=== PATIENT | male | born 1955 | race Caucasian/White ===

== ENCOUNTER 2019-04-02 16:43 | Inpatient (IN) | payer BC ==
[~2019-04-02] VITALS: Ht 170.2 cm; Wt 85.4 kg
[2019-04-02] MEDS ORDERED: proCHLORperazine 10 MG/2 ml inj IV ONE (16:55)
[2019-04-02] MEDS ORDERED: iohexol 350MG/ML 100ml bottle IV ONE (16:58)
[2019-04-02 17:10] LABS: BASOPHILS # (AUTO) 0.1 X10'3 (0-0.2); BASOPHILS % (AUTO) 0.4 % (0-1); EOSINOPHILS % (AUTO) 0.1 % (0-6); HEMATOCRIT 38.3 % (42.0-52.0); HEMOGLOBIN 12.8 g/dl (14.0-17.9); LYMPHOCYTES # (AUTO) 2.4 X10'3 (1.1-4.8); LYMPHOCYTES % (AUTO) 15.8 % (21-51); MEAN CORPUSCULAR HGB CONC 33.4 g/dL (33.0-36.5); MEAN CORPUSCULAR VOLUME 86.9 FL (78-98); MEAN PLATELET VOLUME 9.2 FL (7.4-10.4); MONOCYTES # (AUTO) 0.7 X10'3 (0-0.9); MONOCYTES % (AUTO) 4.5 % (2-12); NEUTROPHILS # (AUTO) 12.2 X10'3 (1.8-7.7); NEUTROPHILS % (AUTO) 79.2 % (42-75); PLATELET COUNT 300 X10'3 (140-440); RED BLOOD COUNT 4.41 X10'6 (4.70-6.10); RED CELL DISTRIBUTION WIDTH 14.1 % (11.5-14.5); WHITE BLOOD COUNT 15.4 X10'3 (4.5-11.0)
[2019-04-02 17:21] LABS: ALANINE AMINOTRANSFERASE 41 U/L (12-78); ALBUMIN 3.6 G/DL (3.4-5.0); ALBUMIN/GLOBULIN RATIO 1.1 (1.1-1.5); ALKALINE PHOSPHATASE 75 IU/L (46-116); ANION GAP 10 (8-16); ASPARTATE AMINO TRANSFERASE 22 U/L (10-37); BILIRUBIN,TOTAL 0.3 MG/DL (0.1-1.0); BLOOD UREA NITROGEN 41 MG/DL (7-18); BUN/CREATININE RATIO 41.4 (5.4-32.0); CALCIUM 8.7 MG/DL (8.5-10.1); CHLORIDE 103 MMOL/L (99-107); CREATININE 0.99 MG/DL (0.60-1.10); GLUCOSE 228 MG/DL (70-104); POTASSIUM 4.2 MMOL/L (3.5-5.1); SODIUM 138 MMOL/L (135-145); TOTAL CARBON DIOXIDE 25.4 MMOL/L (24-32); TOTAL PROTEIN 6.8 G/DL (6.4-8.2); eGFR 76 ML/MIN
[2019-04-02 17:29] LABS: LIPASE 101 U/L (73-393); MAGNESIUM 1.8 MG/DL (1.5-2.4)
[2019-04-02] MEDS ORDERED: morphine 4 MG/ML inj SYRINge IV ONE (17:35)
--- NOTE | 2019-04-02 18:02 | NUR ---
PT. W/C TO CT WITH TECH
--- NOTE | 2019-04-02 18:11 | NUR ---
Patient currently in CT and will be assessed upon return.
--- NOTE | 2019-04-02 18:15 | NUR ---
Family updated on POC.
--- NOTE | 2019-04-02 18:18 | NUR ---
Patient complains of indigestion. Spoke to Dr. Wyatt about medication to help and pepcid IV ordered.
[2019-04-02] MEDS ORDERED: famotidine/PF 10 mg/ml inj IV ONE (18:20)
[2019-04-02 19:03] LABS: URINE AMPHETAMINE SCREEN NEGATIVE (Neg); URINE BARBITUATE SCREEN NEGATIVE (Neg); URINE BENZODIAZEPINES SCREEN NEGATIVE (Neg); URINE CANNABINOID SCREEN NEGATIVE (Neg); URINE COCAINE SCREEN NEGATIVE (Neg); URINE METHADONE SCREEN POSITIVE (Neg); URINE OPIATE SCREEN POSITIVE (Neg); URINE PHENCYCLIDINE SCREEN NEGATIVE (Neg)
--- NOTE | 2019-04-02 19:07 | NUR ---
Patient reports vast improvement of pain symptoms with pepcid IV administration.
[2019-04-02] MEDS ORDERED: aminophylline 250mg/10ml inj. IV PRN (19:35)
[2019-04-02] MEDS ORDERED: magnesium Cl slow-release 64mg tablet PO PRN (19:35)
[2019-04-02] MEDS ORDERED: acetaminophen 325mg tablet PO PRN ×2 (19:35)
[2019-04-02] MEDS ORDERED: potassium CL 10mEq/100ml bag 100 ML IV PRN (19:35)
[2019-04-02] MEDS ORDERED: aspirin 325mg tablet PO ONE (19:35)
[2019-04-02] MEDS ORDERED: ondansetron/PF 4mg/2ml inj IV PRN (19:35)
[2019-04-02] MEDS ORDERED: magnesium hydroxide 30ml (MOM) UD suspension PO PRN (19:35)
[2019-04-02] MEDS ORDERED: metoprolol tartrate 1mg/ml inj IV PRN (19:35)
[2019-04-02] MEDS ORDERED: potassium Cl 20 mEq SR tablet PO PRN ×2 (19:35)
[2019-04-02] MEDS ORDERED: magnesium 2GM in 50ml NS 50 ML IV PRN (19:35)
[2019-04-02] MEDS ORDERED: mag hydrox/Alum hydrox/simeth 30ml oral suspension PO PRN (19:35)
[2019-04-02] MEDS ORDERED: regadenoson 0.4mg/5ml syringe IV PRN (19:35)
[2019-04-02] MEDS ORDERED: bisacodyl 10mg suppository rectal RC PRN (19:35)
[2019-04-02] MEDS ORDERED: morphine 2 MG/ML inj. syringe IV PRN ×2 (19:35)
[2019-04-02] MEDS ORDERED: nitroGLYCERIN 0.4mg SUBLingual tab SL PRN ×2 (19:35)
[2019-04-02] MEDS ORDERED: magnesium 4gm in 100ml NS 100 ML IV PRN (19:35)
[2019-04-02] MEDS ORDERED: potassium Cl 40MEQ/NS 500ml 500 ML IV PRN (19:35)
--- NOTE | 2019-04-02 19:52 | NUR ---
ULTRASOUND AT BEDSIDE
[2019-04-02] MEDS: normal saline 1000ml 1,000 ML IV SCH ×2 (20:09→21:46)
[2019-04-02] MEDS: pantoprazole 40mg Tablet.DR PO SCH (20:10)
[2019-04-02 20:30] VITALS: BP 149/80
--- NOTE | 2019-04-02 20:30 | NUR ---
Patient arrived on floor from ED via gurney after receiving report from Sukhi COLON. Patient is alert and oriented able to ambulate to bed independently. Complaining of back pain 3/10 at this time. Placed on vehicle monitor technician, vitals taken, oriented to room. Dr Camilo at bedside to evaluate patient. Patient has no belongings with him at this time, states that his daughter took everything home with her. Continuing to monitor closely
[2019-04-02] MEDS ORDERED: temazepam 15mg capsule PO PRN (21:00)
--- NOTE | 2019-04-02 22:05 | NUR ---
PAGER ID: [phone] MESSAGE: Zuleika COLON ext [phone] AyleenYola romeoick [id number] New admit from ER, eating dinner, states he is have pain in is chest similar to pain he had before. Was given 20mg Pepcid IV @ 1830 and pain was relived in ER.
[2019-04-02 23:00] VITALS: BP 165/70
[2019-04-02] MEDS ORDERED: famotidine 20mg tablet PO ONE (23:00)
[2019-04-02 23:48] LABS: H PYLORI ANTIBODY NEGATIVE (Neg)
[2019-04-03] VITALS (10 sets, daily range): BP systolic 130–151; BP diastolic 57–104
[2019-04-03 06:10] LABS: BASOPHILS % (AUTO) 0.2 % (0-1); EOSINOPHILS % (AUTO) 0 % (0-6); HEMATOCRIT 33.5 % (42.0-52.0); HEMOGLOBIN 11.3 g/dl (14.0-17.9); LYMPHOCYTES % (AUTO) 13.6 % (21-51); MEAN CORPUSCULAR HEMOGLOBIN 29.1 PG (27.0-31.0); MEAN CORPUSCULAR HGB CONC 33.8 g/dL (33.0-36.5); MEAN CORPUSCULAR VOLUME 86.2 FL (78-98); MEAN PLATELET VOLUME 9.5 FL (7.4-10.4); MONOCYTES # (AUTO) 0.8 X10'3 (0-0.9); MONOCYTES % (AUTO) 5.7 % (2-12); NEUTROPHILS # (AUTO) 11.9 X10'3 (1.8-7.7); NEUTROPHILS % (AUTO) 80.5 % (42-75); PLATELET COUNT 260 X10'3 (140-440); RED BLOOD COUNT 3.89 X10'6 (4.70-6.10); RED CELL DISTRIBUTION WIDTH 14.4 % (11.5-14.5); WHITE BLOOD COUNT 14.8 X10'3 (4.5-11.0)
--- NOTE | 2019-04-03 06:28 | NUR ---
Problems reprioritized. Patient report given, questions answered & plan of care reviewed with Hannah COLON.
[2019-04-03 06:30] LABS: ALANINE AMINOTRANSFERASE 32 U/L (12-78); ALBUMIN 3.3 G/DL (3.4-5.0); ALBUMIN/GLOBULIN RATIO 1.1 (1.1-1.5); ALKALINE PHOSPHATASE 64 IU/L (46-116); ANION GAP 9 (8-16); ASPARTATE AMINO TRANSFERASE 19 U/L (10-37); BILIRUBIN,TOTAL 0.4 MG/DL (0.1-1.0); BLOOD UREA NITROGEN 30 MG/DL (7-18); BUN/CREATININE RATIO 29.7 (5.4-32.0); CALCIUM 8.3 MG/DL (8.5-10.1); CHLORIDE 106 MMOL/L (99-107); CREATININE 1.01 MG/DL (0.60-1.10); GLUCOSE 148 MG/DL (70-104); POTASSIUM 4.3 MMOL/L (3.5-5.1); SODIUM 141 MMOL/L (135-145); TOTAL CARBON DIOXIDE 26.4 MMOL/L (24-32); TOTAL PROTEIN 6.3 G/DL (6.4-8.2); eGFR 75 ML/MIN
[2019-04-03 06:34] LABS: CHOL/HDL RATIO 7.5 (0.00-4.99); CHOLESTEROL 157 MG/DL (0-200); HDL CHOLESTEROL 21 MG/DL (35-60); LDL CHOLESTEROL 101 MG/DL (50-100); MAGNESIUM 2.1 MG/DL (1.5-2.4); PHOSPHORUS 3.7 MG/DL (2.3-4.5); TRIGLYCERIDES 199 MG/DL (20-135)
--- NOTE | 2019-04-03 07:00 | NUR ---
Patient in room PCU 3023b. I have received report from Zuleika COLON and had the opportunity to ask questions and assume patient care. Patient is resting comfortably, appears to be in no distress. Fluids running per MD order. Stress test scheduled for this a.m., patient has been NPO since midnight. Bed is low and locked with call light in place, will continue to monitor at this time.
[2019-04-03] MEDS: pantoprazole 40mg Tablet.DR PO SCH (07:46)
[2019-04-03] MEDS ORDERED: K and/or MAG REPLACEMENT MC SCH (08:00)
[2019-04-03] MEDS ORDERED: atorvastatin 20mg tablet PO SCH (08:00)
[2019-04-03] MEDS ORDERED: famotidine 20mg tablet PO SCH (08:00)
[2019-04-03] MEDS ORDERED: enoxaparin 40mg/0.4ml syringe SUBCUT SCH (08:00)
[2019-04-03] MEDS ORDERED: aspirin 325mg tablet PO SCH (08:30)
--- NOTE | 2019-04-03 08:53 | NUR ---
PAGER ID: [phone] MESSAGE: Hannah COLON Ext [phone] Patient requesting Methadone takes 10mg PO BID at home. Thank you
[2019-04-03] MEDS ORDERED: ATOR20TA66 PO (08:57)
[2019-04-03] MEDS ORDERED: METH-603 PO (08:57)
[2019-04-03] MEDS ORDERED: BENA10TA74 PO (08:57)
[2019-04-03] MEDS ORDERED: methadone 10mg tablet PO SCH (09:05)
--- NOTE | 2019-04-03 09:31 | NUR ---
Spoke with Dr Awad who verbalized a one time approval for PO Norco5 and 10mg PO Flexeril PRN for migraine. Patient denies migraine at this time. Will continue to monitor.
--- NOTE | 2019-04-03 09:45 | NUR ---
Patient headed to stress test at this time.
[2019-04-03] MEDS ORDERED: aminophylline inj. 10 ML IV ONE (09:58)
[2019-04-03] MEDS ORDERED: regadenoson 0.4mg/5ml syringe IV ONE (09:58)
--- NOTE | 2019-04-03 11:25 | NUR ---
Patient back from stress test, denies complaints, vitals stable. Patient requesting to eat something for lunch, provided patient with turkey sandwich. Will continue to monitor patient at this time.
--- NOTE | 2019-04-03 11:51 | NUR ---
page sent to dietary: 0401I, Ayleen, patient requesting information on acid-reducing diet. Thank you, ISAIAH Serna
--- NOTE | 2019-04-03 13:13 | NUR ---
Patient in shower at this time, denies complaints
--- NOTE | 2019-04-03 13:21 | NUR ---
Left message at [facility] for followup appointment per patient request.
[2019-04-03] MEDS ORDERED: PANT40TA4 PO (14:12)
--- NOTE | 2019-04-03 15:09 | NUR ---
Patient educated about discharge instructions. Appointment made for patient at [facility] for tomorrow morning at 10:10. [facility] would not accept an over the phone prescription, hard copy sent with patient. Patient denies complaints at time of discharge. All questions from patient and family answered. Patient belongings gathered with assistance from family, tele box removed from patient and returned to tele room. PIV removed from patient, tip was intact. Patient was pleasant and ambulatory, vitals were stable at time of discharge. Patient encouraged to call hospital with any questions or concerns.
== END 2019-04-03 15:01 | disposition home or self-care (01) | DRG 392 ==
LOC: ER 16:44 → PCU 3S 19:46
PROVIDERS: ADMIT Family Medicine; ATTEND Family Medicine
DX: K29.70 Gastritis, unspecified, without bleeding (principal); I20.9 Angina pectoris, unspecified; I10 Essential (primary) hypertension; E78.5 Hyperlipidemia, unspecified; M41.9 Scoliosis, unspecified; R53.83 Other fatigue; K80.20 Calculus of gallbladder without cholecystitis without obstruction; G89.29 Other chronic pain; M54.9 Dorsalgia, unspecified; D72.829 Elevated white blood cell count, unspecified; E78.1 Pure hyperglyceridemia; Z90.49 Acquired absence of other specified parts of digestive tract; Z98.52 Vasectomy status
CPT/HCPCS: 36415; 71045; 71275; 74174; 76700; 78452; 80053; 80061; 80305; 83690; 83735; 83880; 84100; 84443; 84484; 85025; 86677; 87070; 93005; 93017; 93306; 96374; 96375; 99285; A9500; G0378; J0280; J0780; J1650; J2270; J3490; J7030; Q9967